=== PATIENT | male | born 1985 | race Asian ===

== ENCOUNTER 2023-01-14 05:15 | Emergency (ER) | payer SELFPAY ==
[~2023-01-14] VITALS: Ht 170.2 cm; Wt 72.6 kg
[2023-01-14 05:20] VITALS: BP 173/131; PULSE 81; RESP 17; TEMP 98.1; O2SAT 98
[2023-01-14] MEDS ORDERED: ACETAMINOPHEN EXTRA STRENGTH 500 MG TAB PO ONE (05:20)
[2023-01-14] MEDS ORDERED: CLONIDINE HYDROCHLORIDE 0.1 MG TAB PO ONE (05:25)
[2023-01-14 05:45] VITALS: PULSE 80; RESP 16; TEMP 98.1; O2SAT 98
[2023-01-14 06:22] VITALS: BP 154/112
== END 2023-01-14 06:26 ==
LOC: MED 05:15
DX: R03.0 Elevated blood-pressure reading, without diagnosis of hypertension (principal); M10.9 Gout, unspecified; Z79.899 Other long term (current) drug therapy
CPT/HCPCS: 99283